=== PATIENT | female | born 1995 | race Caucasian/White ===

== ENCOUNTER 2024-10-11 07:05 | Inpatient (IN) | payer OTHER ==
[2024-10-11] MEDS: ELECTROLYTE-148 SOLN 1,000 ML IV ONE (08:00)
[2024-10-11] MEDS: ELECTROLYTE-148 SOLN 1,000 ML IV SCH (09:00)
[2024-10-11] MEDS: CITRIC ACID/SODIUM CITRATE 30 ML UNIT-DOSE CUP PO ONE (09:00)
[2024-10-11 09:06] VITALS: BMI 30.8
[2024-10-11] MEDS ORDERED: FENTANYL CITRATE/PF 50 MCG/ML VIAL ONE (09:59)
[2024-10-11] MEDS ORDERED: morphine SULFATE/PF 1 MG/2 ML (2cc Syringe - QUVA) ONE (09:59)
[2024-10-11] MEDS ORDERED: METOCLOPRAMIDE HCL INJECTION 10 MG/2 ML VIAL ONE (10:07)
[2024-10-11] MEDS ORDERED: DEXAMETHASONE SOD PHOSPHATE 4 MG/1 ML VIAL ONE (10:07)
[2024-10-11] MEDS ORDERED: OXYTOCIN 10 UNITS/ML VIAL ONE (10:07)
[2024-10-11] MEDS ORDERED: ONDANSETRON 4 MG/2 ML VIAL ONE (10:07)
[2024-10-11] MEDS ORDERED: METHYLERGONOVINE MALEATE 0.2 MG/1 ML AMP IM PRN (11:47)
[2024-10-11 11:53] LABS: CORD BASE EXCESS -2.9 mmol/L (0-2); CORD HCO3 25.0 mmHg (20-29); CORD PCO2 55.9 mmHg (30-78); CORD pH 7.268 (7.14-7.44)
[2024-10-11 11:54] LABS: CORD BASE EXCESS -1.9 mmol/L (0-2); CORD HCO3 24.2 mmHg (20-29); CORD PCO2 45.8 mmHg (30-78); CORD pH 7.341 (7.14-7.44)
[2024-10-11] MEDS ORDERED: OXYTOCIN 20 UNITS in 0.9% NS 20 UNIT/1,000 ML INFUS.BAG IV ONE (12:38)
[2024-10-11] MEDS: OXYTOCIN 20 UNITS in 0.9% NS 20 UNIT/1,000 ML INFUS.BAG IV SCH (13:00)
[2024-10-11] MEDS: ACETAMINOPHEN 1000 MG/100 ML BAG IVPB PRN (18:17)
[2024-10-12 06:56] LABS: ABSOLUTE IMMATURE GRANULOCYTES 0.07 x10^3/uL (0.0-0.031); BASOPHILS # 0.04 x10^3/uL (0.01-0.08); EOSINOPHIL % 0.7 % (0.7-5.8); EOSINOPHILS # 0.10 x10^3/uL (0.04-0.36); MCHC 32.6 g/dl (32.2-35.5); MEAN CELL VOLUME 92.0 fl (79.4-94.8); MEAN PLT VOLUME 10.5 fl (9.4-12.3); MONOCYTE # 1.04 x10^3/uL (0.24-0.86); MONOCYTE % 7.8 % (4.7-12.5); RDW 13.9 % (12.1-16.8)
[2024-10-12] MEDS: IBUPROFEN 600 MG TABLET (FP) PO PRN (10:13)
[2024-10-12] MEDS ORDERED: BISACODYL 10 MG SUPP.RECT RC PRN (11:47)
[2024-10-12] MEDS: ACETAMINOPHEN 325 MG TABLET (FP) PO PRN (13:01)
[2024-10-12] MEDS: SIMETHICONE 80 MG TAB.CHEW (FP) PO PRN (20:56)
[2024-10-13 09:11] VITALS: RESP 18
[2024-10-14 09:27] LABS: ABSOLUTE IMMATURE GRANULOCYTES 0.03 x10^3/uL (0.0-0.031); BASOPHILS # 0.04 x10^3/uL (0.01-0.08); EOSINOPHIL % 2.1 % (0.7-5.8); EOSINOPHILS # 0.21 x10^3/uL (0.04-0.36); MCHC 32.5 g/dl (32.2-35.5); MEAN CELL VOLUME 93.2 fl (79.4-94.8); MEAN PLT VOLUME 10.1 fl (9.4-12.3); MONOCYTE # 0.50 x10^3/uL (0.24-0.86); MONOCYTE % 5.1 % (4.7-12.5); RDW 14.3 % (12.1-16.8)
[2024-10-14 10:32] VITALS: BP 115/68; PULSE 83; TEMP 97.9
== END 2024-10-14 17:15 | disposition home or self-care (01) | DRG 540 ==
LOC: JLDR 07:05 → J3W 14:50
PROVIDERS: ADMIT Obstetrics & Gynecology Obstetrics; ATTEND Obstetrics & Gynecology Obstetrics
PROC: 10D00Z1 Extraction of Products of Conception, Low, Open Approach (ICD-10-PCS; principal; 2024-10-11)
DX: O34.211 Maternal care for low transverse scar from previous cesarean delivery (principal); N85.8 Other specified noninflammatory disorders of uterus; O26.893 Other specified pregnancy related conditions, third trimester; R76.8 Other specified abnormal immunological findings in serum; O99.214 Obesity complicating childbirth; Z3A.39 39 weeks gestation of pregnancy; Z37.0 Single live birth
CPT/HCPCS: 36415; 36600; 59409; 82803; 85025; 86593; 86780; 86850; 86900; 86901; 88307-TC; 94010